=== PATIENT | female | born 1970 | race Caucasian/White ===

== ENCOUNTER 2019-11-18 16:24 | Emergency (ER) | payer SELFPAY ==
--- NOTE | ~2019-11-18 | XR_ITS ---
XR chest 1V portable DATE: 11/18/2019 17:51 INDICATION: Shortness of breath, chills TECHNIQUE: 11/18/2019 portable AP chest at 1745 hours COMPARISON: 04/22/2018 portable AP chest FINDINGS: Status post lower anterior cervical spine surgical fusion. Normal heart size. No hilar or mediastinal enlargement. No pulmonary infiltrate or consolidation, ple ural effusion or pulmonary vascular congestion or pneumothorax. IMPRESSION: No active cardiopulmonary disease Reviewed, dictated and finalized at location A.
[2019-11-18 16:45] VITALS: BP 138/82; PULSE 67; RESP 14; TEMP 36.6; O2SAT 100
--- NOTE | 2019-11-18 17:14 | ED.GENADULT ---
HPI - General Adult General Chief complaint: Shortness of Breath/Dyspnea Stated complaint: chills, SOB, Body aches, head pain, sore throat Time Seen by Provider: 11/18/19 17:14 History of Present Illness HPI narrative: 49-year-old female patient is here with chief complaints of generalized body aches and not feeling well since this morning. The patient states that she also has some shortness of breath and wheezing and did use her rescue inhaler that she uses periodically for her asthma. She states that that did help for difficulty breathing. She denies any unusual cough, sore throat or runny nose. She denies any contact with COVID patient. Patient states that she call [id number] the this morning and they advised her to come to the hospital and be tested for lane virus. The patient does state that she had some chills but did not have any fever or did not check it at home since she did not have a thermometer. She is not a smoker. She has an underlying history of asthma which requires the a rescue inhaler only. Patient also states that she has noticed some swelling in her legs and is not on any medication for that at this time. Related Data Home Medications Medication Instructions Recorded Confirmed Unable to Obtain Home Medications 11/18/19 11/18/19 Allergies Allergy/AdvReac Type Severity Reaction Status Date / Time aspirin Allergy Severe NOSE BLEEDS Verified 04/23/09 10:16 promethazine Allergy Severe CONVULSIONS Verified 04/23/09 10:16 sumatriptan [From Imitrex] Allergy Unknown Verified 11/18/19 17:32 DHE Allergy Unknown Uncoded 11/18/19 17:32 Review of Systems Review of Systems: All systems reviewed & are unremarkable except as noted in HPI and below Constitutional: Constitutional: Reports chills, Reports fatigue, Denies fever(s) and Reports weakness Eyes: Eyes: Reports no additional eye complaints ENT: Reports system reviewed and no additional complaints, except as documented Cardiovascular: Cardiovascular: Reports no additional cardiovascular complaints Respiratory: Respiratory: Denies cough, Reports dyspnea and Reports wheezing Gastrointestinal: Gastrointestinal: Denies abdominal pain, Denies diarrhea, Denies nausea and Denies vomiting Musculoskeletal: Musculoskeletal: Reports no additional musculoskeletal complaints Integumentary/Breasts: Skin/Breast: Reports system reviewed and no additional complaints, except as docu Neurologic: Reports system reviewed and no additional complaints, except as documented Psychiatric: Psychiatric: Reports no additional psychiatric complaints Endocrine: Endocrine: Reports no additional endocrine complaints [facility] Past Medical History Medical History (Updated 11/18/19 @ 18:43 by Kristel Foss MD) Asthma Migraine Surgical History Surgical History (Updated 11/18/19 @ 17:32 by Kristel Foss MD) No pertinent past surgical history Social History Social History (Updated 11/18/19 @ 17:32 by Kristel Foss MD) Smoking status: Never smoker Living arrangements: with family Exam Const: General: healthy appearing, no acute distress and alert Nutritional Appearance: obese Orientation/consciousness: patient oriented x3 HENMT: Head: normal to inspection Ears: external ears normal, TM's normal bilaterally and EAC's normal Eyes: Pupils: Equal, round and reactive pupils present EOM: EOMs intact bilaterally Neck: Neck: normal visual inspection Chest: Chest palpation & inspection: normal inspection of the chest Resp: Effort & Inspection: normal respiratory effort Auscultation: clear to auscultation bilaterally Cardio: Rate: regular rate Rhythm: regular rhythm GI: GI Palp: Yes Soft to palpation and No Tenderness to palpation present (GI) : General: Yes no CVA tenderness Back/Spine/Pelvis: Back: no CVA tenderness Skin: General skin exam: normal color Neuro: General: patient oriented x3 and moves all extremities Speech: normal speech Gait e
[2019-11-18 17:38] LABS: Basophils Absolute Auto 0.02 K/mm3 (0.00-0.10); Basophils Percent Auto 0.3 % (0.0-1.0); Eosinophils Absolute Auto 0.14 K/mm3 (0.02-0.50); Eosinophils Percent Auto 2.2 % (1.0-6.0); Hematocrit 38.5 % (35.0-49.0); Hemoglobin 12.6 g/dL (12.0-15.0); Immature Granulocyte Absolute 0.03 K/mm3 (0.00-0.00); Immature Granulocyte Percent A 0.5 % (0.0-0.0); Lymphocytes Absolute Auto 1.54 K/mm3 (1.10-4.50); Mean Corpuscular HGB Conc 32.7 g/dL (32.0-36.0); Mean Corpuscular Hemoglobin 28.3 pg (27.0-31.0); Mean Corpuscular Volume 86.5 fL (78.0-102.0); Mean Platelet Volume 9.8 fl (9.2-11.8); Monocytes Absolute Auto 0.44 K/mm3 (0.10-0.90); Monocytes Percent Auto 6.9 % (2.0-11.0); Neutrophils Absolute Auto 4.2 K/mm3 (1.7-7.2); Neutrophils Percent Auto 66.1 % (50.0-70.0); Platelet Count Result 200 K/mm3 (150-420); Red Blood Count 4.45 M/mm3 (4.20-5.40); Red Cell Distribution Width 13.6 % (11.6-14.4); White Blood Count 6.4 K/mm3 (4.8-10.8)
[2019-11-18 17:53] LABS: Alanine Aminotransferase 20 U/L (14-59); Alkaline Phosphatase 80 U/L (46-116); Anion Gap 9.1 mmol/L (7-16); Aspartate Amino Transferase 20 U/L (15-37); Bilirubin,Total 0.3 mg/dL (0.00-1.00); Blood Urea Nitrogen 12 mg/dL (7-18); Calcium 8.2 mg/dL (8.5-10.1); Carbon Dioxide 29 mmol/L (21-32); Chloride 109 mmol/L (98-108); Estimated CRCL calculation 63 ml/min; Estimated Glomerular Filt Rate 54; Glucose 102 mg/dL (70-99); Magnesium 1.9 mg/dL (1.8-2.4); Osmolality Calculated 295 mOsm/kg (285-295); Potassium 4.1 mmol/L (3.5-5.1); Sodium 143 mmol/L (136-145); Total Protein 6.2 g/dL (6.4-8.2)
[2019-11-18 17:56] LABS: Influenza Control Valid (Valid)
[2019-11-18 18:40] VITALS: BP 157/64; PULSE 73; RESP 15; O2SAT 98
[2019-11-21 14:26] LABS: SARS-CoV-2 RNA PCR Negative
== END 2019-11-18 18:51 | disposition home or self-care (01) ==
PROVIDERS: Emergency Provider Emergency Medicine; PCP Internal Medicine
DX: J45.909 Unspecified asthma, uncomplicated (principal); M79.10 Myalgia, unspecified site; R53.83 Other fatigue
CPT/HCPCS: 71045; 80053; 83735; 85025; 87635; 87804; 99282; 99283; C9803; U0003

== ENCOUNTER 2019-11-30 17:30 | Outpatient (CLI) | payer SELFPAY ==
[2019-11-30 18:02] LABS: D Dimer 0.19 mg/L (0.19-0.50)
[2019-11-30 18:05] LABS: BNP 32.2 pg/mL (0-100); Creatine Kinase 52 U/L (26-192)
[2019-11-30 18:06] LABS: Troponin I < 0.02 ng/mL (0.00-0.056)
== END 2019-11-30 17:31 | disposition home or self-care (01) ==
LOC: CHSLAB 17:32
PROVIDERS: PCP Internal Medicine; Visit Provider Internal Medicine
DX: R06.00 Dyspnea, unspecified (principal); M79.89 Other specified soft tissue disorders
CPT/HCPCS: 36415; 82550; 82553; 83880; 84484; 85380

== ENCOUNTER 2019-12-23 13:44 | Outpatient (CLI) | payer SELFPAY ==
[2019-12-23 14:04] LABS: Basophils Absolute Auto 0.03 K/mm3 (0.00-0.10); Basophils Percent Auto 0.5 % (0.0-1.0); Eosinophils Absolute Auto 0.13 K/mm3 (0.02-0.50); Hematocrit 42.3 % (35.0-49.0); Hemoglobin 13.9 g/dL (12.0-15.0); Immature Granulocyte Absolute 0.03 K/mm3 (0.00-0.00); Immature Granulocyte Percent A 0.5 % (0.0-0.0); Lymphocytes Absolute Auto 1.23 K/mm3 (1.10-4.50); Lymphocytes Percent Auto 18.7 % (18.0-42.0); Mean Corpuscular HGB Conc 32.9 g/dL (32.0-36.0); Mean Corpuscular Volume 85.3 fL (78.0-102.0); Mean Platelet Volume 9.7 fl (9.2-11.8); Monocytes Absolute Auto 0.46 K/mm3 (0.10-0.90); Neutrophils Absolute Auto 4.7 K/mm3 (1.7-7.2); Neutrophils Percent Auto 71.3 % (50.0-70.0); Platelet Count Result 246 K/mm3 (150-420); Red Blood Count 4.96 M/mm3 (4.20-5.40); Red Cell Distribution Width 13.3 % (11.6-14.4); White Blood Count 6.6 K/mm3 (4.8-10.8)
[2019-12-23 14:27] LABS: Alanine Aminotransferase 22 U/L (14-59); Albumin Level 3.5 g/dL (3.4-5.0); Alkaline Phosphatase 91 U/L (46-116); Anion Gap 7 mmol/L (8-16); Aspartate Amino Transferase 19 U/L (15-37); Bilirubin,Total 0.4 mg/dL (0.00-1.00); Blood Urea Nitrogen 14 mg/dL (7-18); Carbon Dioxide 30 mmol/L (21-32); Chloride 103 mmol/L (98-108); Estimated Glomerular Filt Rate 55; Glucose 92 mg/dL (70-99); Osmolality Calculated 290 mOsm/kg (285-295); Potassium 4.4 mmol/L (3.5-5.1); Sodium 140 mmol/L (136-145); Total Protein 7.3 g/dL (6.4-8.2)
[2019-12-24 14:58] LABS: SARS-CoV-2 RNA PCR Negative
== END 2019-12-23 13:45 | disposition home or self-care (01) ==
LOC: CHSLAB 13:46
PROVIDERS: PCP Internal Medicine; Visit Provider Internal Medicine
DX: R50.9 Fever, unspecified (principal); R51 Headache
CPT/HCPCS: 36415; 80053; 85025; 87635; C9803; U0003

== ENCOUNTER 2020-04-16 16:04 | Outpatient (CLI) | payer SELFPAY ==
[2020-04-16 16:46] LABS: Basophils Absolute Auto 0.04 K/mm3 (0.00-0.10); Basophils Percent Auto 0.6 % (0.0-1.0); Eosinophils Absolute Auto 0.14 K/mm3 (0.02-0.50); Eosinophils Percent Auto 2.1 % (1.0-6.0); Hematocrit 40.3 % (35.0-49.0); Hemoglobin 13.2 g/dL (12.0-15.0); Immature Granulocyte Absolute 0.02 K/mm3 (0.00-0.00); Immature Granulocyte Percent A 0.3 % (0.0-0.0); Lymphocytes Absolute Auto 1.53 K/mm3 (1.10-4.50); Lymphocytes Percent Auto 22.6 % (18.0-42.0); Mean Corpuscular HGB Conc 32.8 g/dL (32.0-36.0); Mean Corpuscular Hemoglobin 28.5 pg (27.0-31.0); Mean Platelet Volume 9.8 fl (9.2-11.8); Monocytes Absolute Auto 0.51 K/mm3 (0.10-0.90); Monocytes Percent Auto 7.5 % (2.0-11.0); Neutrophils Absolute Auto 4.5 K/mm3 (1.7-7.2); Neutrophils Percent Auto 66.9 % (50.0-70.0); Platelet Count Result 243 K/mm3 (150-420); Red Blood Count 4.63 M/mm3 (4.20-5.40); Red Cell Distribution Width 13.5 % (11.6-14.4); White Blood Count 6.8 K/mm3 (4.8-10.8)
[2020-04-16 17:07] LABS: SARS-CoV-2 Ag Negative (Negative)
[2020-04-16 17:40] LABS: Alanine Aminotransferase 22 U/L (14-59); Albumin Level 3.6 g/dL (3.4-5.0); Alkaline Phosphatase 93 U/L (46-116); Amylase 32 U/L (25-115); Anion Gap 8 mmol/L (8-16); Aspartate Amino Transferase 14 U/L (15-37); Bilirubin,Total 0.2 mg/dL (0.00-1.00); Blood Urea Nitrogen 15 mg/dL (7-18); Carbon Dioxide 28 mmol/L (21-32); Chloride 103 mmol/L (98-108); Estimated Glomerular Filt Rate > 60; Glucose 77 mg/dL (70-99); Lipase 133 U/L (73-393); Osmolality Calculated 287 mOsm/kg (285-295); Potassium 4.4 mmol/L (3.5-5.1); Sodium 139 mmol/L (136-145); Thyroid Stimulating Hormone 1.92 uIU/mL (0.36-3.74); Total Protein 6.9 g/dL (6.4-8.2)
[2020-04-18 13:19] LABS: Reference Lab Test Result Negative
== END 2020-04-16 16:05 | disposition home or self-care (01) ==
LOC: CHSLAB 16:07
PROVIDERS: PCP Internal Medicine; Visit Provider Nurse Practitioner Family
DX: R50.9 Fever, unspecified (principal); R53.83 Other fatigue; Z20.828 Contact with and (suspected) exposure to other viral communicable diseases; R19.4 Change in bowel habit
CPT/HCPCS: 36415; 80053; 82150; 83690; 84443; 85025; 86769; 87426

== ENCOUNTER 2020-05-30 22:39 | Emergency (ER) | payer SELFPAY ==
[2020-05-30 22:51] VITALS: BP 166/92; PULSE 85; RESP 20; TEMP 36.1; O2SAT 100
--- NOTE | 2020-05-30 22:57 | ED.GENADULT ---
HPI - General Adult General Chief complaint: Shortness of Breath/Dyspnea Stated complaint: trouble breathing Source: patient Mode of arrival: ambulatory Limitations: no limitations History of Present Illness HPI narrative: Brenda is a 49F with a PMH of asthma that presented to the ED with chest tightness. She states that her chest has been tight all day. She feels like it is hard to breath and had to use her rescue inhaler 5 times. No chest pain, syncope, lightheadedness, N/V, abdominal pain or headache. She has had this in the past and it has improved with steroids. Related Data Allergies Allergy/AdvReac Type Severity Reaction Status Date / Time aspirin Allergy Severe NOSE BLEEDS Verified 04/23/09 10:16 promethazine Allergy Severe CONVULSIONS Verified 04/23/09 10:16 sumatriptan [From Imitrex] Allergy Unknown Verified 11/18/19 17:32 DHE Allergy Unknown Uncoded 11/18/19 17:32 Review of Systems Constitutional: Constitutional: Reports no additional constitutional complaints Eyes: Eyes: Reports no additional eye complaints ENT: Reports system reviewed and no additional complaints, except as documented Cardiovascular: Cardiovascular: Reports as per HPI Respiratory: Respiratory: Reports as per HPI Gastrointestinal: Gastrointestinal: Reports no additional gastrointestinal complaints Genitourinary: Genitourinary: Reports no additional female genitourinary complaints Musculoskeletal: Musculoskeletal: Reports no additional musculoskeletal complaints Integumentary/Breasts: Skin/Breast: Reports system reviewed and no additional complaints, except as docu Neurologic: Reports system reviewed and no additional complaints, except as documented Psychiatric: Psychiatric: Reports no additional psychiatric complaints Endocrine: Endocrine: Reports no additional endocrine complaints Hematologic/Lymphatic: Hematologic/Lymphatic: Reports no additional hematologic/lymphatic complaints Allergic/Immunologic: Allergic/Immunologic: Reports no additional allergic/immunologic complaints [facility] Past Medical History Medical History Asthma Migraine Surgical History Surgical History No pertinent past surgical history Social History Social History Smoking status: Never smoker Exam Const: General: no acute distress and alert Orientation/consciousness: patient oriented x3 Limitations: No altered mental status Other: was pacing around the room HENMT: Head: normal to inspection Eyes: Conjunctivae: conjunctivae normal Pupils: Equal, round and reactive pupils present Neck: Neck: normal visual inspection Chest: Chest palpation & inspection: normal inspection of the chest Other: TTP of the cartilage just lateral to the sternum bilaterally Resp: Effort & Inspection: normal respiratory effort, not labored, no retractions, not tachypneic and no use of accessory muscles Auscultation: clear to auscultation bilaterally and no wheezes Cardio: Rate: regular rate Rhythm: regular rhythm GI: GI Palp: Yes Soft to palpation, No Tenderness to palpation present (GI) and No Guarding due to palpation present (GI) Skin: General skin exam: normal color Rashes: no rashes Neuro: General: patient oriented x3 and moves all extremities Extrem: General: normal to inspection Psych: Appearance: grossly normal Mental Status: mental status grossly normal Course Course Emergency Course: Brenda was evaluated and was normal on physical exam other than appearing very anxious. She was given a shot of ativan for her anxiety. While she was breathing without difficulty she has a history of significant asthma needing steroids. Because of this she was given a shot of solumedrol as her inhalers could have covered up an asthma exacerbation. Vital Signs Vital signs: Vital Signs Temperature
[2020-05-30] MEDS: LORazepam INJ (*CRX) 2 MG/ML VIAL 1 MG IM (23:08)
[2020-05-30 23:09] VITALS: BP 154/83; PULSE 71; RESP 20; O2SAT 100
[2020-05-30] MEDS: methylPREDNISolone SOD SUCC 125 MG VIAL IM (23:09)
[2020-05-30 23:23] VITALS: BP 137/83; PULSE 68; RESP 20; TEMP 36.5; O2SAT 100
== END 2020-05-30 23:35 | disposition home or self-care (01) ==
PROVIDERS: Emergency Provider Family Medicine; PCP Internal Medicine
DX: J45.909 Unspecified asthma, uncomplicated (principal); F41.9 Anxiety disorder, unspecified; M94.0 Chondrocostal junction syndrome [Tietze]
CPT/HCPCS: 96372; 99283; 99284; J2060; J2930

== ENCOUNTER 2021-01-19 10:20 | Emergency (ER) | payer SELFPAY ==
[2021-01-19 10:25] VITALS: BP 156/78; PULSE 68; RESP 20; TEMP 36.6; O2SAT 99
--- NOTE | 2021-01-19 10:34 | ED.EAR ---
HPI - Ear Problem General Chief complaint: Ear Stated complaint: thoart pain, ear pain Source: patient and family Mode of arrival: ambulatory History of Present Illness HPI Narrative: this is a 50-year-old female that presents with some sore throat with sinus congestion frontal sinus pressure bilateral ear pressure with no cough no shortness of breath no fever chills no nausea vomiting. Complaint: ear pain Location: bilateral Duration: constant Severity: moderate Relieving factors: nothing Exacerbating factors: nothing Related Data Home Medications Medication Instructions Recorded Confirmed alprazolam 0.5 mg PO BID 01/19/21 01/19/21 quetiapine 300 mg PO HS 01/19/21 01/19/21 Allergies Allergy/AdvReac Type Severity Reaction Status Date / Time aspirin Allergy Severe NOSE BLEEDS Verified 04/23/09 10:16 promethazine Allergy Severe CONVULSIONS Verified 04/23/09 10:16 sumatriptan [From Imitrex] Allergy Unknown Verified 11/18/19 17:32 DHE Allergy Unknown Uncoded 11/18/19 17:32 Review of Systems Review of Systems: All systems reviewed & are unremarkable except as noted in HPI and below PMFSH Past Medical History Medical History Asthma Migraine Surgical History Surgical History No pertinent past surgical history Social History Social History Smoking status: Never smoker Exam Const: General: no acute distress and alert Orientation/consciousness: patient oriented x3 HENMT: Ears: TM abnormal ( Dullness bilaterally ears) Face and sinus: sinus tenderness Eyes: Conjunctivae: conjunctivae normal Pupils: Equal, round and reactive pupils present Neck: Neck: normal visual inspection, no lymphadenopathy and no meningeal signs Chest: Chest palpation & inspection: normal inspection of the chest Resp: Effort & Inspection: normal respiratory effort Cardio: Rate: regular rate Rhythm: regular rhythm GI: GI Palp: Yes Soft to palpation : General: Yes no CVA tenderness Skin: General skin exam: normal color Rashes: no rashes Psych: Mental Status: mental status grossly normal Course Course Emergency Course: rapid strep ordered, patient has symptoms consistent with sinusitis and talked about this with patient will be sending antibiotics advised to take Claritin along with Flonase. Critical Care Time Critical Care Time Critical Care Time: No Discharge Plan Discharge Clinical Impression: Sinusitis Qualifiers: Sinusitis location: frontal Chronicity: acute Recurrence: non-recurrent Qualified Code(s): J01.10 - Acute frontal sinusitis, unspecified Patient Disposition: Home, Self-Care Condition: Stable Instructions: Antibiotic Form Additional Instructions: take medicine as prescribed, can take Claritin [id number] daily for 1 to 2 weeks and follow-up with primary care physician if symptoms persist or worsen. along with prescribed medication can take Tylenol or Motrin for sore throat. Prescriptions: New azithromycin [Zithromax Z-Cody] 250 mg tablet See Rx Instructions .ROUTE .COMPLEX Qty: 6 RF: 0 fluticasone propionate [Flonase Allergy Relief] 50 mcg/actuation spray,suspension 2 spray intranasal DAILY Qty: 16 RF: 0 No Action quetiapine 300 mg Tablet 300 mg PO HS RF: 0 alprazolam 0.5 mg Tablet 0.5 mg PO BID RF: 0 Follow-up/Referrals: Julio Max MD [Primary Care Provider] - Time of Disposition: 10:51
[2021-01-19 10:51] VITALS: BP 148/80; PULSE 88; RESP 20; O2SAT 97
== END 2021-01-19 10:56 | disposition home or self-care (01) ==
PROVIDERS: Emergency Provider Emergency Medicine; PCP Internal Medicine
DX: J01.10 Acute frontal sinusitis, unspecified (principal)
CPT/HCPCS: 87081; 87880; 99283